=== PATIENT | male | born 1975 | race Caucasian/White ===

== ENCOUNTER 2020-11-03 11:02 | Emergency (ER) | payer OTHER, SELFPAY ==
--- NOTE | 2020-11-03 11:06 | ED.GENADULT ---
HPI - General Adult General Chief complaint: Back Pain/Injury Stated complaint: lower back pain Time Seen by Provider: 11/03/20 11:06 Source: patient Mode of arrival: ambulatory Limitations: no limitations History of Present Illness HPI narrative: 44-year-old male patient presents to the [facility] with complaints of low back pain for the past 3 days. Patient denies any specific injury that he is aware of but states [place] and pulling and unloading some stuff which thinks he might have aggravated but denies anything specific. Patient states he started having some pain later on that evening and he took some ibuprofen. Patient states the next morning when he woke up his pain was more severe especially when he went to go and stand. Patient states at times he does have some shooting pain down the right leg. Denies any numbness or tingling down the legs. Denies any loss of bowel or bladder control. Related Data Allergies Allergy/AdvReac Type Severity Reaction Status Date / Time No Known Allergies Allergy Verified 11/03/20 11:21 Review of Systems Review of Systems: Narrative: CONSTITUTIONAL: Denies fever, chills, or sweats. EYES: Denies visual changes, redness, or discharge. ENT: Denies rhinorrhea, congestion, sore throat, or otalgia. CARDIOVASCULAR: Denies chest pain, palpitations, or edema. RESPIRATORY: Denies cough or dyspnea. GASTROINTESTINAL: Denies abdominal pain, nausea, vomiting, or diarrhea. GENITOURINARY: Denies dysuria or hematuria. SKIN: Denies rash or itching. MUSCULOSKELETAL: Positive low back pain, denies joint pain, or myalgia. NEUROLOGIC: Denies headache, numbness, or weakness. PSYCHIATRIC: Denies anxiety or depression. [facility] Past Medical History Medical History (Updated 11/03/20 @ 11:39 by TERRI Albert) Inguinal hernia Comments At the time of my signature I agree with nursing past medical history, surgical, social, and family history. There is no relevant family history pertinent to the presenting complaint. Exam Narrative: Exam Narrative: GENERAL: Well-appearing, well-nourished, and in no acute distress. HEAD: Normocephalic, atraumatic. EYES: PERRLA and EOMI. ENT: Nares clear, no rhinorrhea or epistaxis. Mucous membranes moist. NECK: Supple. No lymphadenopathy CHEST: Clear to auscultation. No respiratory distress. HEART: Regular rate and rhythm. No murmur heard. Normal peripheral pulses. ABDOMEN: Soft, nontender, nondistended, normal active bowel sounds. EXTREMITIES: Normal range of motion. No edema. BACK: Patient is able to ambulated without assistance. Pt is seated on the stretcher in no obvious distress. No surface trauma noted. muscle tenderness to Palpation on the Right sided lumbar area but No spasm or mass. Patient does have some pain on palpation over the sciatic nerve on the right side no step-offs or deformity noted to the cervical, thoracic or lumbar spine to firm Palpation at the midline. No CVA tenderness to percussion. No saddle anesthesia. ROM: able to stand erect. Normal flexion, extension, Lateral bending and rotation without limitation or complaint of pain. SKIN: Warm, dry, no rash. NEURO: No focal deficits. Alert and oriented x3. Course Vital Signs Vital signs: Vital Signs Temperature 36.0 C L 11/03/20 11:13 Pulse Rate 91 11/03/20 11:13 Respiratory Rate 18 11/03/20 11:13 Blood Pressure 147/104 H 11/03/20 11:13 Pulse Oximetry 99 11/03/20 11:13 Temperature 36.0 C L 11/03/20 11:13 Pulse Rate 91 11/03/20 11:13 Respiratory Rate 18 11/03/20 11:13 Blood Pressure 147/104 H 11/03/20 11:13 Pulse Oximetry 99 11/03/20 11:13 Vital signs reviewed The patient has been informed that they may have pre-hypertension or Hypertension based on a BP reading in the department. I recommend that the patient call the primary care provider listed on their discharge instructions or a physician of their choice
[2020-11-03 11:13] VITALS: BP 147/104; PULSE 91; RESP 18; TEMP 36; O2SAT 99
== END 2020-11-03 11:45 | disposition home or self-care (01) ==
PROVIDERS: Emergency Provider Nurse Practitioner Family; PCP Family Medicine
DX: M54.41 Lumbago with sciatica, right side (principal)
CPT/HCPCS: 99203; G0463

== ENCOUNTER 2022-10-14 11:57 | Emergency (ER) | payer OTHER, SELFPAY ==
[2022-10-14 12:02] VITALS: BP 149/96; PULSE 81; RESP 20; TEMP 36.8; O2SAT 98
--- NOTE | 2022-10-14 12:24 | ED.HA ---
HPI - Headache General Chief Complaint: Headache Stated Complaint: migraine / nausea Source: patient and RN notes reviewed History of Present Illness HPI Narrative: 46 yo M presents to urgent care with complaints of a migraine since this morning. Pt reports associated nausea and vomiting this morning, photophobia, and sound sensitivity. Patient denies any neck pain, fevers, chills, diarrhea, chest pain, shortness of breath. Denies abdominal pain. Patient did take Tylenol earlier with minimal relief. Some parts of this dictation were generated by voice recognition software and may contain typographical and/or grammatical inaccuracies. Related Data Home Medications Medication Instructions Recorded Confirmed amlodipine 2.5 mg tablet 5 mg PO DAILY 10/14/22 10/14/22 aspirin 81 mg chewable tablet 81 mg PO DAILY 10/14/22 10/14/22 atorvastatin 40 mg tablet 40 mg PO DAILY 10/14/22 10/14/22 Allergies Allergy/AdvReac Type Severity Reaction Status Date / Time No Known Allergies Allergy Verified 10/14/22 12:12 Review of Systems Review of Systems: Pertinent positives and pertinent negatives per HPI. [facility] Past Medical History Medical History (Updated 10/14/22 @ 12:32 by Nora Romero, LAW ENFORCEMENT DIRECTOR) Inguinal hernia Comments At the time of my signature, I reviewed and agree with the nursing past medical, surgical, social, and family history. There is no relevant family history pertinent to the patient complaint. Exam Narrative: GENERAL: This is a well-nourished, well-developed patient, in no apparent distress. HEAD: normocephalic, atraumatic. EYES: PERRL. Sclera clear/white. Vision is grossly intact. EARS: External ears normal, auditory canals clear and without drainage, TMs normal without perforation. Hearing grossly intact. NOSE: External nose normal with no obvious nasal discharge, nares without redness, no rhinorrhea. THROAT: Mucous membranes moist, posterior pharynx clear. NECK: Neck supple, non-tender without lymphadenopathy, masses or thyromegaly. CARDIOVASCULAR: Regular rate and rhythm without murmurs, gallops, or rubs. RESPIRATORY: Clear to auscultation. Breath sounds equal bilaterally. No wheezes, rales, or rhonchi. GASTROINTESTINAL: Abdomen soft, non-tender, nondistended. Bowel sounds are active. No hepato-splenomegaly, or palpable masses. No guarding. SKIN: warm, intact with no suspicious lesions or rash, good texture and turgor. NEURO: awake, alert, and oriented to person, place and time. There were no obvious focal neurologic abnormalities. Course Course Level of Care: Express Care Visit Vital Signs Vital signs: Vital Signs Temperature 98.2 F 10/14/22 12:02 Pulse Rate 81 10/14/22 12:02 Respiratory Rate 20 10/14/22 12:02 Blood Pressure 149/96 H 10/14/22 12:02 Pulse Oximetry 98 10/14/22 12:02 Oxygen Delivery Room Air 10/14/22 12:02 Temperature 98.2 F 10/14/22 12:02 Pulse Rate 81 10/14/22 12:02 Respiratory Rate 20 10/14/22 12:02 Blood Pressure 149/96 H 10/14/22 12:02 Pulse Oximetry 98 10/14/22 12:02 Oxygen Delivery Room Air 10/14/22 12:02 Reviewed MDM - Headache MDM Narrative Medical decision making narrative: Get plenty of fluids and rest. May take ibuprofen and/or Tylenol if needed for pain. May take Zofran for nausea every 4 6 hours if needed. Follow-up with your primary care physician in 2-5 days. Go to the emergency department with any new worsening symptoms. Differential Diagnosis Differential diagnosis: Likely migraine, headache and other (Viral illness) Critical Care Time Critical Care Time Critical Care Time: No Discharge Plan Discharge Clinical Impression: Migraine Qualifiers: Migraine type: unspecified Status migrainosus presence: without status migrainosus Intractability: not intractable Qualified Code(s): G43.909 - Migraine, unspecified, not intractable, without status migrainosus Patient Disposition: Home, Self-Care Condition: Stable
[2022-10-14] MEDS: KETOROLAC 30 MG/ML VIAL (*BKC) IM (12:33)
== END 2022-10-14 12:53 | disposition home or self-care (01) ==
PROVIDERS: Emergency Provider Nurse Practitioner Family; PCP Family Medicine
DX: G43.909 Migraine, unspecified, not intractable, without status migrainosus (principal)
CPT/HCPCS: 96372; 99213; G0463; J1885

== ENCOUNTER 2023-05-11 12:11 | Emergency (ER) | payer OTHER, SELFPAY ==
--- NOTE | 2023-05-11 12:25 | ED.GENADULT ---
HPI - General Adult General Chief complaint: Unspecified Stated complaint: needs return to work note Source: patient and RN notes reviewed History of Present Illness HPI narrative: 47 yo M presents to urgent care with requests for a work note. Pt states he had to call off work this morning b/c he had diarrhea. Pt states he took some Tums and he feels much better. Pt states his place of work is wanting him to get a work note. Pt has no complaints at this time. Denies any fevers, chills, abdominal pain, chest pain, SOB, sore throat, or ear pain. Related Data Home Medications Medication Instructions Recorded Confirmed amlodipine 2.5 mg tablet 5 mg PO DAILY 10/14/22 05/11/23 aspirin 81 mg chewable tablet 81 mg PO DAILY 10/14/22 05/11/23 atorvastatin 40 mg tablet 40 mg PO DAILY 10/14/22 05/11/23 Allergies Allergy/AdvReac Type Severity Reaction Status Date / Time No Known Allergies Allergy Verified 10/14/22 12:12 Review of Systems Review of Systems: Pertinent positives and pertinent negatives per HPI. [facility] Past Medical History Medical History (Updated 05/11/23 @ 12:38 by Nora Romero, FRUIT AND VEGETABLE INSPECTOR) Inguinal hernia Comments At the time of my signature, I reviewed and agree with the nursing past medical, surgical, social, and family history. There is no relevant family history pertinent to the patient complaint. Exam Narrative: GENERAL: This is a well-nourished, well-developed patient, in no apparent distress. HEAD: normocephalic, atraumatic. EYES: Sclera clear/white. Vision is grossly intact. EARS: External ears normal, auditory canals clear and without drainage. Hearing grossly intact. NOSE: External nose normal with no obvious nasal discharge, nares without redness, no rhinorrhea. THROAT: Mucous membranes moist, posterior pharynx clear. NECK: Neck supple, non-tender without lymphadenopathy, masses or thyromegaly. CARDIOVASCULAR: Regular rate and rhythm without murmurs, gallops, or rubs. RESPIRATORY: Clear to auscultation. Breath sounds equal bilaterally. No wheezes, rales, or rhonchi. GASTROINTESTINAL: Abdomen soft, non-tender, nondistended. Bowel sounds are active. No hepato-splenomegaly, or palpable masses. No guarding. SKIN: warm, intact with no suspicious lesions or rash, good texture and turgor. NEURO: awake, alert, and oriented to person, place and time. There were no obvious focal neurologic abnormalities. EXTREMITIES: No clubbing, cyanosis, or edema. No joint tenderness, effusion, or edema noted. BACK: Nontender without deformity or crepitus. No flank tenderness. Course Course Level of Care: Express Care Visit Vital Signs Vital signs: Reviewed Medical Decision Making MDM Narrative Medical decision making narrative: pt here for a work note Differential Diagnosis Differential Diagnosis: well adult exam, viral illness, food poisoning Critical Care Time Critical Care Time Critical Care Time: No Discharge Plan Discharge Clinical Impression: Well adult exam Patient Disposition: Home, Self-Care Condition: Stable Instructions: General Patient Instructions Prescriptions: No Action atorvastatin 40 mg tablet 40 mg PO DAILY amlodipine 2.5 mg tablet 5 mg PO DAILY aspirin 81 mg tablet,chewable 81 mg PO DAILY ondansetron HCl 4 mg tablet 4 mg PO Q6H PRN (Reason: nausea and vomiting) Qty: 14 0RF Follow-up/Referrals: Harms,Saeed Jiménez M.D. [Primary Care Provider] - Stand Alone Forms: Work/School Release IP Time of Disposition: 12:37
[2023-05-11 12:30] VITALS: BP 142/96; PULSE 70; RESP 16; TEMP 37.3; O2SAT 99
== END 2023-05-11 12:42 | disposition home or self-care (01) ==
PROVIDERS: Emergency Provider Nurse Practitioner Family; PCP Family Medicine
DX: Z02.79 Encounter for issue of other medical certificate (principal); Z79.82 Long term (current) use of aspirin
CPT/HCPCS: 99211; G0463

== ENCOUNTER 2023-06-19 13:41 | Emergency (ER) | payer OTHER, SELFPAY ==
[2023-06-19 14:02] VITALS: BP 142/84; PULSE 84; RESP 16; TEMP 36.7; O2SAT 97
--- NOTE | 2023-06-19 14:20 | ED.NAVMDI ---
HPI - Nausea/Vomiting/Diarrhea General Chief complaint: Nausea/Vomiting/Diarrhea Stated complaint: Diarrhea/Vomiting Time Seen by Provider: 06/19/23 14:21 Source: patient Mode of arrival: ambulatory Limitations: no limitations History of Present Illness HPI Narrative: 47-year-old male presents with complaint of nausea vomiting and diarrhea starting after eating [employer] yesterday. Last vomited at approximately 8:00 a.m.. No longer having any nausea or diarrhea. Patient needs work note to return. Thinks symptoms related to eating [employer]. Afebrile. Denies body aches and chills. Well-appearing and smiling. All systems reviewed and negative except as noted above. Related Data Home Medications Medication Instructions Recorded Confirmed amlodipine 2.5 mg tablet 5 mg PO DAILY 10/14/22 06/19/23 aspirin 81 mg chewable tablet 81 mg PO DAILY 10/14/22 06/19/23 atorvastatin 40 mg tablet 40 mg PO DAILY 10/14/22 06/19/23 Allergies Allergy/AdvReac Type Severity Reaction Status Date / Time No Known Allergies Allergy Verified 10/14/22 12:12 Review of Systems Review of Systems: CONSTITUTIONAL: Denies fever, chills, or sweats. EYES: Denies visual changes, redness, or discharge. ENT: Denies rhinorrhea, congestion, sore throat, or otalgia. CARDIOVASCULAR: Denies chest pain, palpitations, or edema. RESPIRATORY: Denies cough or dyspnea. GASTROINTESTINAL: Denies abdominal pain. Reports nausea, vomiting, and diarrhea that has resolved. GENITOURINARY: Denies dysuria or hematuria. SKIN: Denies rash or itching. MUSCULOSKELETAL: Denies back pain, joint pain, or myalgia. NEUROLOGIC: Denies headache, numbness, or weakness. PSYCHIATRIC: Denies anxiety or depression. All other systems reviewed are negative, except as documented in HPI. [facility] Past Medical History Medical History (Updated 06/19/23 @ 14:24 by Ritu Angel NP) Inguinal hernia Comments At time of signature, agree with nursing past medical, surgical, social and family history. There is no relevant family history pertinent to the presenting complaint. Exam Narrative: GENERAL: This is a well-nourished, well-developed patient, in no apparent distress. HEAD: normocephalic, atraumatic. EYES: PERRL. Sclera clear/white. Vision is grossly intact. EARS: External ears normal NOSE: External nose normal NECK: Neck supple, non-tender without lymphadenopathy, masses or thyromegaly. CARDIOVASCULAR: Regular rate and rhythm without murmurs, gallops, or rubs. RESPIRATORY: Clear to auscultation. Breath sounds equal bilaterally. No wheezes, rales, or rhonchi. GASTROINTESTINAL: Abdomen soft, non-tender, nondistended. Bowel sounds are active. No hepato-splenomegaly, or palpable masses. No guarding. SKIN: warm, Dry, intact with no suspicious lesions or rash, good texture and turgor. NEURO: awake, alert, and oriented to person, place and time. There were no obvious focal neurologic abnormalities. EXTREMITIES: No joint tenderness, effusion, or edema noted. Course Course Level of Care: Express Care Visit Vital Signs Vital signs: Vital Signs Temperature 36.7 C 06/19/23 14:02 Pulse Rate 84 06/19/23 14:02 Respiratory Rate 16 06/19/23 14:02 Blood Pressure 142/84 H 06/19/23 14:02 Pulse Oximetry 97 06/19/23 14:02 Oxygen Delivery Room Air 06/19/23 14:02 Temperature 36.7 C 06/19/23 14:02 Pulse Rate 84 06/19/23 14:02 Respiratory Rate 16 06/19/23 14:02 Blood Pressure 142/84 H 06/19/23 14:02 Pulse Oximetry 97 06/19/23 14:02 Oxygen Delivery Room Air 06/19/23 14:02 Reviewed MDM - Nausea/Vomiting/Diarrhea MDM Narrative Medical decision making narrative: Patient well-appearing. Symptoms have resolved. No abdominal tenderness on exam. Here for work note. Patient is aware of diagnosis, understands and agrees to treatment plan. Anticipatory guidance given. Patient agrees to follow-up as directed and is aware of reasons to se
== END 2023-06-19 14:32 | disposition home or self-care (01) ==
PROVIDERS: Emergency Provider Nurse Practitioner Family; PCP Family Medicine
DX: R11.2 Nausea with vomiting, unspecified (principal); R19.7 Diarrhea, unspecified; Z79.82 Long term (current) use of aspirin; Z79.899 Other long term (current) drug therapy
CPT/HCPCS: 99211; G0463

== ENCOUNTER 2024-10-08 19:23 | Emergency (ER) | payer OTHER, SELFPAY ==
--- OUTSIDE RECORDS SUMMARY | 2024-10-08 19:26 | XMS_ITS | Clinical Summary ---
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 Name Role Phone Saeed Alicea MD Primary Care Provider [phone] Allergies No known active allergies Medications aspirin 81 mg chewable tablet Take 1 tablet (81 mg total) by mouth daily 30 tablet 11 02/06/20 22 Active atorvastatin (LIPITOR) 40 mg tablet Take 1 tablet (40 mg total) by mouth daily 30 tablet 11 03/09/20 23 Active benzonatate (TESSALON) 100 mg capsuleIndications :Cough Take 1 capsule (100 mg total) by mouth 3 (three) times a day as needed for cough 42 capsule 07/11/20 23 Active Additional Information Patient not taking.Reported on 08/08/2024 ondansetron ODT (ZOFRAN-ODT) 4 mg disintegrating tablet Take 1 tablet (4 mg total) by mouth every 8 (eight) hours as needed for nausea or vomiting 20 tablet 07/11/[address] (PROTONIX) 40 mg EC tablet Take 1 tablet by mouth twice daily 180 tablet 09/15/19 24 Active amLODIPine (NORVASC) 2.5 mg tablet Take 2 tablets by mouth once daily 60 tablet 04/03/20 24 Active Active Problems Problem Noted Date Diagnosed Date Class 3 severe obesity due t o excess calories without serious comorbidity with body mass index (BMI) of 40.0 to 44.9 in adult 08/08/2024 Assessment & Plan (08/08/2024 11:09 AM CENTRIFUGAL DRIER OPERATOR): Encouraged heart healthy diet and lifestyle. Advised 150 min/week of aerobic exercise. Family history of hemochromatosis 08/08/2024 Assessment & Plan (08/08/2024 11:10 AM CENTRIFUGAL DRIER OPERATOR): Will check iron profile, Ferritin, and Hemochromatosis gene. Choking sensation 07/11/2023 Dyspepsia 07/11/2023 Heartburn 07/11/2023 Migraine 05/31/2023 Encounter for screening colonoscopy 04/19/2023 Elevated glucose 11/21/2018 Chest pain 05/12/2016 Overview (11/04/2016): Chest pain, unspecified type Assessment & Plan (11/21/2018 2:09 PM CDT): Patient recently in the emergency room on November 16 for chest pain. Cardiac enzymes were negative, chest x-ray was negative, EKG was normal. D-dimer was negative. Will have patient do a stress test. Will check patient's thyroid labs. Will check A1c. And carotid ultrasound Essential hypertension 05/12/2016 Overview (11/04/2016): Essential hypertension Assessment & Plan (08/08/2024 11:08 AM CENTRIFUGAL DRIER OPERATOR): Blood pressure slightly increased. Admits to not taking medication as prescription. Amlodipine will continue. Assessment & Plan (11/21/2018 11:56 AM CDT): Hypertension is improving with treatment. Weight loss. Blood pressure will be reassessed in 4 weeks. Lifestyle changes can help you control and prevent high blood pressure, even if you're taking blood pressure medication. Here's what you can do: Eat healthy foods. Eat a healthy diet. Try the Dietary Approaches to Stop Hypertension (DASH) diet, which emphasizes fruits, vegetables, whole grains, poultry, fish and low-fat dairy foods. Get plenty of potassium, which can help prevent and control high blood pressure. Eat less saturated fat and trans fat. Decrease the salt in your diet. A lower sodium level -- 1,500 milligrams (mg) a day -- is appropriate for people 51 years of age or older, and individuals of any age who are black or who have hypertension, diabetes or chronic kidney disease. Maintain a healthy weight. Keeping a healthy weight, or losing weight if you're overweight or obese, can help you control your high blood pressure and lower your risk of related health problems. If you're overweight, losing even 5 pounds (2.3 kilograms) can lower your blood pressure. Increase physical activity. Regular physical activity can help lower your blood pressure, manage stress, reduce your risk of several health problems and keep your weight under control. Limit alcohol. Even if you're healthy, alcohol can raise your blood pressure. If you choose to drink alcohol, do so in moderation. For healthy adults, that means up to one drink a day for women of all ages and men older than age 65, and up to two drinks a day for men age 65 and younger. One drink equals 12 ounces of beer, 5 ounces of wine or 1.5 ounces of 80-proof liquor. Don't smoke. Tobacco injures blood vessel loyd and speeds up the process of hardening of the arteries. If you smoke, ask your doctor to help you quit. Manage stress. Reduce stress as much as possible. Practice healthy coping techniques, such as muscle relaxation, deep breathing or meditation. Getting regular physical activity and plenty of sleep can help, too. Notify the office for blood pressure greater than 130/80 Chest pain on exertion 05/12/2016 Overview (11/04/2016): Chest pain on exertion Hyperlipidemia, familial, high LDL Assessment & Plan (08/08/2024 11:08 AM CENTRIFUGAL DRIER OPERATOR): Lipid panel ordered. Will continue atorvastatin. Will continue to monitor. Resolved Problems Problem Noted Date Diagnosed Date Resolved Date Severe obesity 08/08/2024 08/08/2024 Chest pain, unspecified type 02/03/2022 08/08/2024 Obesity, Class II, BMI 35-39 .9, isolated (see actual BMI) 11/21/2018 08/08/2024 Assessment & Plan (11/21/2018 11:43 AM CDT): Obesity is worsening. Discussed the patient's BMI. The BMI is above average; BMI management plan is completed. General weight loss/lifestyle modification strategies discussed (elicit support from others; identify saboteurs; non-food rewards, etc). Diet= low-carb Limit white bread, rice, pasta, potatoes, juice, energy drinks, coffee creamers with sugar, sugar sodas, candy, cake, cookies, ice cream. Be more careful with starchy vegetables like corn, carrots, and fruits. Stay away from processed foods, fast foods, fried foods. The cornerstone of this diet is lean grilled meats, green salads or cooked greens, fat-free milk, cottage cheese, nuts like jaadzvx-meubsqn-kudmhtc, protein bars with 10-15 g of protein and 20-30 g of carbohydrate. Choose whole grain breads and pastas, brown rice, sweet potatoes, read onions--these whole grains absorb more slowly thus blood sugar does not surge so high so quickly. Avoid drinking juice, eat a piece of fruit instead. Encounters Date Type Department Care Team Description 08/16/2024 [facility]phone [facility] [address] [address] Saeed Alicea MD 08/08/2024 11:30 AM CENTRIFUGAL DRIER OPERATOR Lab [facility] [address] [place] [address] Family history of hemochromatosis; Hyperlipidemia, familial, high LDL; Essential hypertension 08/08/2024 11:00 AM CENTRIFUGAL DRIER OPERATOR [facility] Visit [facility] [address] [address] Pily Tipton NP Family history of hemochromatosis (Primary Dx); Essential hypertension; Hyperlipidemia, familial, high LDL; Class 3 severe obesity due to excess calories without serious comorbidity with body mass index (BMI) of 40.0 to 44.9 in adult (HCC) from Last 3 Months Immunizations Immunization Administration Dates Next Due Influenza, Quadrivalent, Spl it, Preservative Free, Intramuscular 05/04/2021 Influenza, Unspecified 08/08/2024(Deferr ed: Patient Refused),08/08/2024(Deferred: Patient Refused),03/31/2024(Deferred: Patient Refused),03/31/2024(Deferred: Patient Refused),03/31/2023(Deferred: Patient Refused),03/09/2023(Deferred: Patient Refused),07/20/2022(Deferred: Patient Refused),03/31/2022(Deferred: Patient Refused),07/31/2020(Deferred: Patient Refused),03/31/2020(Deferred: Patient Refused),10/04/2019(Deferred: Patient Refused),07/31/2018(Deferred: Patient Refused),09/28/2017(Deferred: Patient Refused),08/01/2016(Deferred: Patient Refused) Surgical History Surgery Date Site/Laterality Comments OTHER SURGICAL HISTORY chest pain: no angioplasty OTHER SURGICAL HISTORY chest pain: no pacemaker OTHER SURGICAL HISTORY chest pain: no bypass surgery COLONOSCOPY 06/19/2024 Medical History Medical History Date Comments Hx Other Medical nasal Fx Hx Other Medical chest pain Seizure disorder (HCC) 1995 Seizure d isorder; Comments: EUGENE 05/12/2016 -1 seizure 1995, no others Hypertension Hyperlipemia Family History Medical History Relation Name Comments Hyperlipidemia Father Hyperlipidemi a; Hypertension Father Hypertension; Other Father Alive and well; Coronary artery disease Mother Edgar nary artery disease; Diabetes Mother Diabetes mellit us; Other Mother Alive and well; Breast cancer Sister Cancer, breast ; Relation Name Status Comments Father Alive Mother Alive Sister Social History Tobacco Use Types Packs/Day Years Used Date Smoking Tobacco: Never Smokeless Tobacco: Never Tobacco Cessation:Counseling Given: Not Answered Alcohol Use Standard Drinks/Week Comments Yes 0 (1 standard drink = 0.6 oz pur e alcohol) 1-2 times a week/ 6 beers PHQ-2 Answer Date Recorded PHQ-2 Total Score (If total score is 3 or more points, staff should administer the PHQ-9) 0 08/08/2024 Personal Safety Answer Date Recorded Have you ever been in or are you currently in a harmful physical or emotional relationship or is someone making you feel afraid or unsafe? Denies 06/19/2024 Sex and Gender Information Value Date Recorded Sex Assigned at Not on file Legal Sex Male 12:30 AM CENTRIFUGAL DRIER OPERATOR Gender Identity Not on file Sexual Orientation Not on file Obstetrics History Last Filed Vital Signs Vital Sign Reading Time Taken Comments Blood Pressure 126/94 08/08/2024 10:56 AM CENTRIFUGAL DRIER OPERATOR pt reports not taking meds like he should Pulse 61 08/08/2024 10:56 AM CENTRIFUGAL DRIER OPERATOR Temperature 36.8 C (98.2 F) 06/19/2024 1:25 PM CENTRIFUGAL DRIER OPERATOR Respiratory Rate 18 08/08/2024 10:5 6 AM CENTRIFUGAL DRIER OPERATOR Oxygen Saturation 98% 08/08/2024 10: 56 AM CENTRIFUGAL DRIER OPERATOR Inhaled Oxygen Concentration - - Weight 115.8 kg (255 lb 6.4 oz) 08/08/2024 10:56 AM CENTRIFUGAL DRIER OPERATOR Height 167.6 cm (5' 5.98 ) 08/08/2024 1 0:56 AM CENTRIFUGAL DRIER OPERATOR Body Mass Index 41.24 08/08/2024 10:56 AM CENTRIFUGAL DRIER OPERATOR Plan of Treatment Health Maintenance Due Date Last Done Comments Hepatitis C Screening 1977 DTaP/Tdap/Td Vaccine (1 - Tdap) 1988 Hepatitis B Screening 12/26/1995 Regular Well Visit/Exam 18-64 12/26/1995 Covid-19 Vaccine ( season) 2024 11/16/2020, 10/26/2020 Influenza Vaccine (#1) 2024 05/04/2021 Depression Screening 08/08/2025 08/08/2024, 03/09/2023, 07/20/2022, Additional history exists Colon Cancer Screening-Colonoscopy 06/19/2034 06/19/2024 HPV Vaccines Aged Out No longer eligi ble based on patient's age to complete this topic Pneumococcal vaccine <65 Aged Out No longer eligible based on patient's age to complete this topic Procedures Procedure Name Priority Date/Time Associated Diagnosis Comments EGFR Routine 08/08/2024 11:53 AM CENTRIFUGAL DRIER OPERATOR Family history of hemochromatosis DIFFERENTIAL AUTO Routine 08/08/2024 11: 53 AM CENTRIFUGAL DRIER OPERATOR Family history of hemochromatosis Essential hypertension CBC WITH AUTO DIFFERENTIAL Routine 08/08/2024 11:53 AM CENTRIFUGAL DRIER OPERATOR Family history of hemochromatosis Essential hypertension COMPREHENSIVE METABOLIC PANEL Routine 08/08/2024 11:53 AM CENTRIFUGAL DRIER OPERATOR Family history of hemochromatosis LIPID PANEL Routine 08/08/2024 11:53 AM CENTRIFUGAL DRIER OPERATOR Hyperlipidemia, familial, high LDL IRON PROFILE W/ IBC Routine 08/08/2024 1 1:53 AM CENTRIFUGAL DRIER OPERATOR Family history of hemochromatosis FERRITIN Routine 08/08/2024 11:53 AM CENTRIFUGAL DRIER OPERATOR Family history of hemochromatosis HEMOCHROMATOSIS HFE GENE ANALYSIS Routine 08/08/2024 11:53 AM CENTRIFUGAL DRIER OPERATOR Family history of hemochromatosis COLONOSCOPY 06/19/2024 10:29 AM CENTRIFUGAL DRIER OPERATOR from Last 3 Months or Most Recently Relevant to Health Maintenance Results * eGFR (08/08/2024 11:53 AM CENTRIFUGAL DRIER OPERATOR) eGFR >90 >=60 mL/min/1. 73 m2 Comment: Interpretive Data Reference Interval Normal >/= 90 mL/min/1.73m2 Mildly decreased* 60 - 89 mL/min/1.73m2 Mildly to moderately decreased 45 - 59 mL/min/1.73m2 Moderately to severely decreased 30 - 44 mL/min/1.73m2 Severely decreased 15 - 29 mL/min/1.73m2 Kidney Failure < 15 mL/min/1.73m2 *Relative to young adult level Estimated glomerular filtration rate is determined by the 2020 CKD-EPI equation recommended by the National Kidney Foundation (A Unifying Approach to GFR Estimation: Recommendations of the NKF-ASK Task Force on Reassessing the Inclusion of Race in Diagnosing Kidney Disease, JASN 2020). The CKD-EPI equation should not be used for patients with unstable renal function and has not been validated in children and those over 70. Current interpretive data was last reviewed 2021. Testing performed by: [facility], [id number] [place] [address], [place]., [address] Blood 08/08/2024 11:5 3 AM CENTRIFUGAL DRIER OPERATOR 08/08/2024 10:41 PM CENTRIFUGAL DRIER OPERATOR us Pily Tipton WIND ENERGY PROJECT MANAGER LAB BLOOD ORDERABLES Final Re sult [facility] ([facility]) [address] [facility] Department [place] [address] * Differential, auto (08/08/2024 11:53 AM CENTRIFUGAL DRIER OPERATOR) Neutrophil abs 4.4 1.5 - 6.5 K/cumm Comment:Testing performed by : [facility], [address] [place] [address]., [address] Imm gran abs 0.0 0.0 - 0.1 K/cumm [facility] ([facility]) Comment:Testing performed by : [facility], [address] [place] [address]., [address] Lymphocyte abs 1.8 0.8 - 3.3 K/cumm [facility] ([facility]) Comment:Testing performed by : [facility], [address] [place] [address]., [address] Monocyte abs 0.5 0.2 - 0.8 K/cumm [facility] ([facility]) Comment:Testing performed by : [address] [address] Eosinophil abs 0.1 0.0 - 0.5 K/cumm [facility] ([facility]) Comment:Testing performed by : [facility], [address] [place] [address]., [address] Basophil abs 0.1 0.0 - 0.1 K/cumm [facility] ([facility]) Comment:Testing performed by : [address] [address] Neutrophil pct 65.1 % [facility] ([facility]) Comment: Interpretive Data Percent cell count reference ranges are not reported, since discordance with absolute values may lead to misinterpretation of CBC data. Current Interpretive Data was last revised on 2017. Testing performed by: [facility], [address] [place] [address]., [address] Imm gran pct 0.4 % [facility] ([facility]) Comment: Interpretive Data Percent cell count reference ranges are not reported, since discordance with absolute values may lead to misinterpretation of CBC data. Current Interpretive Data was last revised on 2017. Testing performed by: [address] [address] Lymphocyte pct 26.0 % [facility] ([facility]) Comment: Interpretive Data Percent cell count reference ranges are not reported, since discordance with absolute values may lead to misinterpretation of CBC data. Current Interpretive Data was last revised on 2017. Testing performed by: [address] [address] Monocyte pct 6.9 % [facility] (JLUIS) Comment: Interpretive Data Percent cell count reference ranges are not reported, since discordance with absolute values may lead to misinterpretation of CBC data. Current Interpretive Data was last revised on 2017. Testing performed by: [facility], [address] [place] [address]., [address] Eosinophil pct 0.9 % [facility] ([facility]) Comment: Interpretive Data Percent cell count reference ranges are not reported, since discordance with absolute values may lead to misinterpretation of CBC data. Current Interpretive Data was last revised on 2017. Testing performed by: [address], [address] Basophil pct 0.7 % [facility] (JLUIS) Comment: Interpretive Data Percent cell count reference ranges are not reported, since discordance with absolute values may lead to misinterpretation of CBC data. Current Interpretive Data was last revised on 2017. Testing performed by: [address], [address] Blood 08/08/2024 11:5 3 AM CENTRIFUGAL DRIER OPERATOR 08/08/2024 10:36 PM CENTRIFUGAL DRIER OPERATOR Pily Tipton NP LAB BLOOD ORDERABLES Final Re sult [facility] ([facility]) [address] [facility] Department [place] [address] * Iron profile w/ IBC (08/08/2024 11:53 AM CENTRIFUGAL DRIER OPERATOR) Iron 112 50 - 150 mcg/dl Comment:Testing performed by : [address], [address] TIBC 316 250 - 400 mcg/dL [facility] ([facility]) Comment:Testing performed by : [address], [address] Transferrin saturation 35 20 - 50 % [facility] ([facility]) Comment:Testing performed by : [address], [address] Blood 08/08/2024 11:5 3 AM CENTRIFUGAL DRIER OPERATOR 08/08/2024 10:36 PM CENTRIFUGAL DRIER OPERATOR Pily Tipton WIND ENERGY PROJECT MANAGER LAB BLOOD ORDERABLES Final Re sult [facility] ([facility]) [address] [facility] Department [place] [address] * (ABNORMAL) CBC with auto differential (08/08/2024 11:53 AM CENTRIFUGAL DRIER OPERATOR) WBC 6.8 3.8 - 9.9 K/cumm Comment:Testing performed by : [address], [address] Hgb 15.7 13.0 - 17.5 g/dL [facility] ([facility]) Comment:Testing performed by : [address], [address] Hct 47.5 38.9 - 50.3 % [facility] ([facility]) Comment:Testing performed by : [address], [address] Plt 269 150 - 400 K/cumm [facility] ([facility]) Comment:Testing performed by : [address], [address] MPV 10.8 9.1 - 12.3 fL [facility] ([facility]) Comment:Testing performed by : [address], [address] RBC 4.70 4.30 - 5.80 M/cumm [facility] ([facility]) Comment:Testing performed by : [address], [address] MCV 101.1(H) 81.3 - 96.4 fL [facility] ([facility]) Comment:Testing performed by : [address], [address] MCH 33.4(H) 27.1 - 33.3 pg [facility] ([facility]) Comment:Testing performed by : [facility], [address] [place] [address], [address] MCHC 33.1 32.3 - 35.7 g/dL [facility] ([facility]) Comment:Testing performed by : [facility], [address] [place] [address], [address] RDW CV 13.7 11.1 - 14.9 % [facility]ALL[facility] (JLUIS) Comment:Testing performed by : [facility], [address] [place] [address], [address] RDW SD 50.6(H) 35.7 - 48.1 fL [facility] ([facility]) Comment:Testing performed by : [facility], [address] [place] [address], [address] NRBC abs 0.00 0.00 - 0.01 K/cumm [facility] ([facility]) Comment:Testing performed by : [facility], [address] [place] [address], [address] Blood 08/08/2024 11:5 3 AM CENTRIFUGAL DRIER OPERATOR 08/08/2024 10:36 PM CENTRIFUGAL DRIER OPERATOR us Pily Tipton NP LAB BLOOD ORDERABLES Final Re sult [facility] ([place]) [address] [facility] Department [place] [address] * Hemochromatosis HFE Gene Analysis (08/08/2024 11:53 AM CENTRIFUGAL DRIER OPERATOR) HFE Genotype Negative [facility] Comment:Testing performed by : [facility], [address] [facility]., [address] HFE p.C282Y Negative [facility] (JLUIS) Comment:Testing performed by : [facility], [address] [facility] [place]., [address] HFE p.H63D Negative [facility] ([facility]) Comment:Testing performed by : [facility], [address] [facility] [place]., [address] HFE Interpretation This genotype suggests low risk of hereditary hemochromatosis (HH) but does not rule out diagnosis or risk for HH. Approximately 6% of Caucasians with HH in [place] have this genotype. The frequency in other ethnicities may vary. Correlation of clinical findings and family history with genotype results is recommended for establishing a diagnosis of HH. HH is an autosomal recessive disorder of iron metabolism that results in iron overload and potential organ failure. It is one of the most common genetic disorders in individuals of - ancestry, with an estimated carrier frequency of 10%. HH is associated with variants in the HFE gene. Most individuals with HH (60-90%) are homozygous for the p.C282Y variant. A smaller percentage of affected individuals are either compound heterozygous for the p.C282Y and p.H63D variants (3%-8%), or homozygous for the p.H63D variant (2%). Genetic counseling is recommended for discussion of the clinical implications of this result. [facility]NE MEJÍA) Comment:Testing performed by : [facility], [address] [place]., [address] HFE Specimen Whole Blood [facility]ALL[facility] (JLUIS) Comment:Testing performed by : [facility], [address] [place]., [address] HFE Result Review Final report reviewed by: Tracie Banks, Quartz Cutter, on 08/16/2024 11:41:11 CENTRIFUGAL DRIER OPERATOR. [facility] ME[facility]ÍA) Comment: Interpretive Data Method: This assay detects the two variants in the HFE gene, p.C282Y (NM_000410.2: c.845G>A) and p.H63D ([id number]: c.187C>G), that are commonly associated with HH. The variants are detected by a multiplex PCR based assay performed on the [employer] 7500 Fast Dx Real-Time PCR instrument. Limitations: Bone Marrow transplants from allogenic donors may interfere with interpretation of test results. Alternative specimen types including cultured fibroblasts may be necessary for accurate testing results. This assay does not rule out the presence of other disease-causing mutations in the HFE gene or in other genes associated with HH. Since genetic variation and additional factors can affect the accuracy of genotyping, these results should be interpreted in the context of clinical findings, family history, and other laboratory testing (e.g. serum transferrin-iron saturation and serum ferritin). This test was developed and its performance characteristics determined by the [facility] at [facility] in a manner consistent with CLIA requirements. This test has not been cleared or approved by the U.S. Food and Drug Administration. References: Everardo RODAS, Matt SALGUERO, Peter CC, et al. Rapg-elykohfb-aeohiad disease in HFE hereditary hemochromatosis. N Engl J Med. 2008;358:221 3 0. Buzz BR, Shan PC, Gabriele KV, et al. Diagnosis and management of hemochromatosis: 2011 practice guideline by the [place] Association for the Study of Liver Diseases. Hepatology. 2011;54:328 4 3. Sánchez NUBIA, Rivera CQ, Na RT. HFE gene: structure, function, mutations, and associated iron abnormalities. Gene. 2015;574:179 9 2. Fabrice CastleJ, Shay HERCULES, Abbey LB, et al. Clinical and biochemical abnormalities in people heterozygous for hemochromatosis. N Engl J Med. 1996;335:1799 8 05. Latisha PA, Narciso LW, Navin DJ, [place] D, Marifer E, Elaine LauK. A population- based study of the biochemical and clinical expression of the H63D hemochromatosis mutation. Gastroenterology. 2002;122:646 5 1. Matt SALGUERO, Yuly NA, Naveen COLLINS, et al. HFE C282Y/H63D compound heterozygotes are at low risk of hemochromatosis-related morbidity. Hepatology. 2009;50:94 1 01. Lucius CORNELIUS, Daniele G, Dutch W. HFE gene and hereditary hemochromatosis: a HuGE review. Human Genome Epidemiology. Am J Epidemiol. 2001 Feb 28; 154(3):193-206. Fransisco A, Danielo C, Krysta L, et al. Two novel nonsense mutations of HFE gene in five unrelated [place] patients with hemochromatosis. Gastroenterology. 2000;119:441 5 . Heather EP, Jessa BA, Evens EL, et al. Screening for hereditary hemochromatosis: a systematic review for the U.S. Preventive Services Task Force. Tawanna Work Car Operator Med. 2006;145:209 2 3. This test was performed at: [facility], [address] [facility], CLIA#[id number], Tawanna Boateng, Ph.D., [place], [address], [place] Current interpretive data was last revised 2021. Testing performed by: [facility], [address] [facility], [place]., [address] Blood 08/08/2024 11:5 3 AM CENTRIFUGAL DRIER OPERATOR 08/09/2024 10:47 AM CENTRIFUGAL DRIER OPERATOR Pily Tipton NP LAB GENETIC TESTING Final Res ult Performing Organization Address City/[facility]/ZIP Co de Phone Number [facility] ([place]) [address] [place] [address] of [employer] [place] [address] [facility] * Ferritin (08/08/2024 11:53 AM CENTRIFUGAL DRIER OPERATOR) Ferritin 258 30 - 400 ng/mL Comment:Testing performed by : [facility] [place], [address] [place] [address]., [id number] Blood 08/08/2024 11:5 3 AM CENTRIFUGAL DRIER OPERATOR 08/08/2024 10:36 PM CENTRIFUGAL DRIER OPERATOR Pily Tipton NP LAB BLOOD ORDERABLES Final Re sult [facility] ([place]) [address] [place] [address] [place] [place] [address] * (ABNORMAL) Lipid panel (08/08/2024 11:53 AM CENTRIFUGAL DRIER OPERATOR) Cholesterol 271(H) 30 - 199 mg/dL Comment: Interpretive Data Ages < or = 19 years Acceptable: <170 mg/dL Borderline high: 170-199 mg/dL High: >or= 200 mg/dL Ages > or = 20 years Desirable: <200 mg/dL Borderline high: 200-239 mg/dL High: >or= 240 mg/dL Literature References: 1. Expert Panel on Integrated Guidelines for Cardiovascular Health and Risk Reduction in Children and Adolescents. Pediatrics 2011;128:S213 2. NCEP Expert Panel. Circulation 2004;110:227 Current Interpretive Data was last revised on 2018. Testing performed by: [facility] [place], [address] [place] [address]., [id number] Triglycerides 226(H) <=149 mg/dL [facility] ([place]) Comment: Interpretive Data Ages < or = 9 years Acceptable: <75 mg/dL Borderline high: 75-99 mg/dL High: >or= 100 mg/dL Ages 10 to 20 years Acceptable: <90 mg/dL Borderline high: 90-129 mg/dL High: >or= 130 mg/dL Ages > or = 20 years Desirable: <150 mg/dL Borderline high: 150-199 mg/dL High: 200-499 mg/dL Very high: >or= 499 mg/dL Literature References: 1. Expert Panel on Integrated Guidelines for Cardiovascular Health and Risk Reduction in Children and Adolescents. Pediatrics 2011;128:S213 2. NCEP Expert Panel. Circulation 2004;110:227 Current Interpretive Data was last revised on 2018. Testing performed by: [facility] [place], [address] [place] [address]., [address] HDL 43 >=40 mg/dL [facility] ([place]) Comment: Interpretive Data Ages < or = 19 years Acceptable: >45 mg/dL Borderline low: 40-45 mg/dL Low: <40 mg/dL Ages > or = 20 years Desirable: >or= 60 mg/dL Low: <40 mg/dL Literature References: 1. Expert Panel on Integrated Guidelines for Cardiovascular Health and Risk Reduction in Children and Adolescents. Pediatrics 2011;128:S213 2. NCEP Expert Panel. Circulation 2004;110:227 Current Interpretive Data was last revised on 2018. Testing performed by: [facility], [address] [place] [address]., [address] LDL, calculated 185(H) <=129 mg/dL [facility] ([place]) Comment: Interpretive Data Ages < or = 19 years Acceptable: <110 mg/dL Borderline high: 110-129 mg/dL High: >or= 130 mg/dL Ages > or = 20 years Optimal: <100 mg/dL Near optimal: 100-129 mg/dL Borderline high: 130-159 mg/dL High: >160 mg/dL Calculated using the Martinez LDL-C estimating equation. This equation was implemented on 2024. Prior to this date LDL-C was estimated using the Friedewald equation. Literature References: 1. Expert Panel on Integrated Guidelines for Cardiovascular Health and Risk Reduction in Children and Adolescents. Pediatrics 2011;128:S213 2. NCEP Expert Panel. Circulation 2004;110:227 3. Juan Renee et al. AKILAH Cardiol. 2020 November 28;5(5):540-548. doi: 10.1001/jamacardio.2020.0013 Current Interpretive Data was last revised on 2024. Testing performed by: [address] [address] Non-HDL Cholesterol 228 mg/dL [facility] ([place]) Comment: Interpretive Data Ages < or = 19 years Acceptable: <120 mg/dL Borderline high: 120-144 mg/dL High: >145 mg/dL Ages > or = 20 years When triglycerides are >200 mg/dL, Non-HDL cholesterol is a secondary target of therapy with treatment goals that are 30 mg/dL greater than the LDL cholesterol target. Literature References: 1. Expert Panel on Integrated Guidelines for Cardiovascular Health and Risk Reduction in Children and Adolescents. Pediatrics 2011;128:S213 2. NCEP Expert Panel. Circulation 2004;110:227 Current Interpretive Data was last revised on 2018. Testing performed by: [address] [address] Chol/HDL ratio 6 [facility] ([place]) Comment:Testing performed by : [address] [address] Blood 08/08/2024 11:5 3 AM CENTRIFUGAL DRIER OPERATOR 08/08/2024 10:36 PM CENTRIFUGAL DRIER OPERATOR us Pily Tipton NP LAB BLOOD ORDERABLES Final Re sult [facility] ([place]) [facility] Department of Laboratories [place], [place] [id number] * (ABNORMAL) Comprehensive metabolic panel (08/08/2024 11:53 AM CENTRIFUGAL DRIER OPERATOR) [employer] Signature Sodium 136 135 - 145 mmol/L Comment:Testing performed by : [address] [place]., [address] Potassium, pl 4.8 3.3 - 4.9 mmol/L [facility] ([place]) Comment:Testing performed by : [facility] [place], [address] [place] [address]., [id number] Chloride 98 97 - 110 mmol/L [facility] ([place]) Comment:Testing performed by : [address] [address] CO2 19(L) 22 - 32 mmol/L [facility] ([place]) Comment:Testing performed by : [facility], [address] [place] [address], [id number] Anion gap 19(H) 2 - 15 mmol/L [facility] ([place]) Comment:Testing performed by : [address], [address] BUN 11 6 - 25 mg/dL [facility] ([place]) Comment:Testing performed by : [address], [address] Creatinine 0.97 0.80 - 1.30 mg/dL [facility] ([place]) Comment:Testing performed by : [address], [address] Glucose 96 70 - 199 mg/dL [facility] ([place]) Comment: Interpretive Data Fasting glucose >/= 126 mg/dl is diagnostic for diabetes. Fasting is defined as no caloric intake for at least 8 hours. Fasting glucose between 100 mg/dl to 125 mg/dl is diagnostic of prediabetes. In a patient with classic symptoms of hyperglycemia or hyperglycemic crisis, a random glucose >/= 200 mg/dl is diagnostic for diabetes. In the absence of unequivocal hyperglycemia, results should be confirmed by repeat testing. The classification and Diagnosis of Diabetes Diabetes Care 202; 46: S19-S40. Current interpretive data was last revised 2022. Testing performed by: [address] [address] Calcium 9.7 8.5 - 10.3 mg/dL [facility] ([place]) Comment:Testing performed by : [address], [address] Bilirubin, total 0.6 0.1 - 1.2 mg/dL [facility] ([place]) Comment:Testing performed by : [facility], [address] [place] [address]., [address] Protein, pl 7.5 6.5 - 8.5 g/dL [facility] ([place]) Comment:Testing performed by : [facility], [address] [place] [address], [address] Albumin 4.7 3.5 - 5.0 g/dL [facility] ([place]) Comment:Testing performed by : [facility], [address] [place] [address], [address] Alk phos 60 40 - 130 Units/L [facility] ([place]) Comment:Testing performed by : [facility], [address] [place] [address], [id number] ALT 62(H) 7 - 55 Units/L [facility] ([place]) Comment:Testing performed by : [facility], [address] [place] [address], [address] AST 53(H) 10 - 50 Units/L [facility] ([place]) Comment:Testing performed by : [facility], [address] [place] [address], [id number] Blood 08/08/2024 11:5 3 AM CENTRIFUGAL DRIER OPERATOR 08/08/2024 10:36 PM CENTRIFUGAL DRIER OPERATOR Pily Tipton NP LAB BLOOD ORDERABLES Final Re sult [facility] ([place]) [facility] Department [place] [address] * Colonoscopy (06/19/2024 10:29 AM CENTRIFUGAL DRIER OPERATOR) Anatomical Region Laterality Modality Other Narrative Procedure Note aKtie Main MD - 06/19/2024 10:[address] [facility] Patient Name: Alpesh Benz Procedure Date: 06/19/2024 10:29AM Date of : 1975 Admit Type: Outpatient Age: 48 Gender: Male Attending MD: Katie Main M.D. Room: [facility] ENDOSCOPY ROOM 1 Note Status: Finalized Patient Profile: This is a 48 year old male. No family history ofcolon cancer. Screening colonoscopy. Procedure: Colonoscopy Indications: Screening for colorectal malignant neoplasm, Thisis the patient's first colonoscopy Referring MD: Saeed Alicea M.D. Providers: Katie Main M.D. Impression: - The entire examined colon is normal. - Internal hemorrhoids. - No specimens collected. Recommendation: - Repeat colonoscopy in 10 years for screening purposes. Medicines: Monitored Anesthesia Care Complications: No immediate complications. Estimated Blood Loss: Estimated blood loss: none. Procedure: Pre-Anesthesia Assessment: - Prior to the procedure, a History and Physicalwas performed, and patient medications and allergieswere reviewed. The patient's tolerance of previous anesthesia was also reviewed. The risks andbenefits of the procedure and the sedation options and risks were discussed with the patient. All questions were answered, and informed consent was obtained. Prior Anticoagulants: The patient has taken noanticoagulant or antiplatelet agents. ASA Grade Assessment: Per anesthesia note and evaluation. After reviewing the risks and benefits, the patient was deemed in satisfactory condition to undergo the procedure. - Prior to the procedure, a History and Physicalwas performed, and patient medications and allergieswere reviewed. The patient's tolerance of previous anesthesia was also reviewed. The risks andbenefits of the procedure and the sedation options and risks were discussed with the patient. All questions were answered, and informed consent was obtained. Prior Anticoagulants: The patient has taken noanticoagulant or antiplatelet agents. ASA Grade Assessment: Per anesthesia note and evaluation. After reviewing the risks and benefits, the patient was deemed in satisfactory condition to undergo the procedure. The benefits, risks and alternatives of theprocedure and sedation were discussed and informed consentwas obtained. All questions were answered. Please referto the signed informed consent document in the medical record. The bowel preparation used was Miralax and bisacodyl tablets via split dose instruction. The scope was passed under direct vision. The Pediatric Colonoscope [id number]-[id number] was introducedthrough the anus and advanced to the the cecum, identifiedby appendiceal orifice and ileocecal valve. Thequality of the bowel preparation was good. Bowel prep was administered using a split dose. Findings: The perianal and digital rectal examinations were normal. The cecum appeared normal. The colon (entire examined portion) appeared normal. No polyps and no mass lesions noted. Internal hemorrhoids were found during retroflexion. The hemorrhoids were small. Electronically signed by Katie Main M.D. Katie Main M.D. 06/19/2024 1:09:00 PM Number of Addenda: 0 Note Initiated On: 06/19/2024 10:29 AM Procedure Code(s): --- Professional --- 17382, Colonoscopy, flexible; diagnostic, including collection of specimen(s) by brushing or washing, when performed (separateprocedure) Diagnosis Code(s): --- Professional --- Z12.11, Encounter for screening for malignant neoplasm of colon K64.8, Other hemorrhoids CPT copyright 2020 [employer]. All rights reserved. The codes documented in this report are preliminary and upon power and recovery shift engineer reviewmay be revised to meet current compliance requirements. Recognized by the [employer] for promoting quality in endoscopy us Katie Main MD ENDOSCOPY PROCEDURES Final Result from Last 3 Months or Most Recently Relevant to Health Maintenance Insurance [employer] OPEN ACCESS Advance Directives For more information, please contact: [phone] * Full Code (Latest Code Status on File) Date Activated Date Inactivated Comments 06/19/2024 10:33 AM 06/19/2024 5:58 PM * Full Code Date Activated Date Inactivated Comments 06/19/2024 10:32 AM 06/19/2024 10:33 AM * Full Code Date Activated Date Inactivated Comments 02/03/2022 8:27 PM 02/04/2022 8:42 PM Care Teams Cigarette Machines Mechanic Relationship Specialty Start Date End Date Saeed Alicea [place] [address] PCP - General 10/28/16
--- OUTSIDE RECORDS SUMMARY | 2024-10-08 19:26 | XMS_ITS | Referral Summary ---
Author Organization [facility] lto Address [address] [place] [address] Care Team Providers Care Manager Special Events Name Role Phone Saeed Alicea MD Primary Care Provider [phone] Encounters Date Type Department Care Team Description 08/16/2024 Telephone [facility] [address] [place] [address] Saeed Alicea MD 08/08/2024 11:30 AM BRASS CHASER Lab [facility] [address] [place] [address] Family history of hemochromatosis; Hyperlipidemia, familial, high LDL; Essential hypertension 08/08/2024 11:00 AM BRASS CHASER Office Visit [facility] [address] [place] [address] Pily Tipton NP Family history of hemochromatosis (Primary Dx); Essential hypertension; Hyperlipidemia, familial, high LDL; Class 3 severe obesity due to excess calories without serious comorbidity with body mass index (BMI) of 40.0 to 44.9 in adult (HCC) from Last 3 Months Allergies No known active allergies Medications aspirin 81 mg chewable tablet Take 1 tablet (81 mg total) by mouth daily 30 tablet 02/06/20 22 Active atorvastatin (LIPITOR) 40 mg tablet Take 1 tablet (40 mg total) by mouth daily 30 tablet 03/09/20 23 Active benzonatate (TESSALON) 100 mg [...] 08/08/2024 Assessment & Plan (08/08/2024 11:09 AM BRASS CHASER): Encouraged heart healthy diet and lifestyle. Advised 150 min/week of aerobic exercise. Family history of hemochromatosis 08/08/2024 Assessment & Plan (08/08/2024 11:10 AM BRASS CHASER): Will check iron profile, Ferritin, and Hemochromatosis [...] hypertension Assessment & Plan (08/08/2024 11:08 AM BRASS CHASER): Blood pressure slightly increased. Admits to not [...] LDL Assessment & Plan (08/08/2024 11:08 AM BRASS CHASER): Lipid panel ordered. Will continue atorvastatin. Will [...] greens, fat-free milk, cottage cheese, nuts like pglkybo-qmhurpk-etskcmo, protein bars with 10-15 g of protein and 20-30 g of carbohydrate. Choose whole grain breads and pastas, brown rice, sweet potatoes, read onions--these whole grains absorb more slowly thus blood sugar does not surge so high so quickly. Avoid drinking juice, eat a piece of fruit instead. Immunizations Immunization Administration Dates Next Due Influenza, Quadrivalent, Spl it, Preservative Free, Intramuscular 05/04/2021 Influenza, Unspecified 08/08/2024(Deferr ed: Patient Refused),08/08/2024(Deferred: Patient Refused),03/31/2024(Deferred: Patient Refused),03/31/2024(Deferred: Patient Refused),03/31/2023(Deferred: Patient Refused),03/09/2023(Deferred: Patient Refused),07/20/2022(Deferred: Patient Refused),03/31/2022(Deferred: Patient Refused),07/31/2020(Deferred: Patient Refused),03/31/2020(Deferred: Patient Refused),10/04/2019(Deferred: Patient Refused),07/31/2018(Deferred: Patient Refused),09/28/2017(Deferred: Patient Refused),08/01/2016(Deferred: Patient Refused) Social History Tobacco Use Types Packs/Day Years [...] on file Legal Sex Male 12:30 AM BRASS CHASER Gender Identity Not on file Sexual Orientation Not on file Last Filed Vital Signs Vital Sign Reading Time Taken Comments Blood Pressure 126/94 08/08/2024 10:56 AM BRASS CHASER pt reports not taking meds like he should Pulse 61 08/08/2024 10:56 AM BRASS CHASER Temperature 36.8 C (98.2 F) 06/19/2024 1:25 PM BRASS CHASER Respiratory Rate 18 08/08/2024 10:5 6 AM BRASS CHASER Oxygen Saturation 98% 08/08/2024 10: 56 AM BRASS CHASER Inhaled Oxygen Concentration - - Weight 115.8 kg (255 lb 6.4 oz) 08/08/2024 10:56 AM BRASS CHASER Height 167.6 cm (5' 5.98 ) 08/08/2024 1 0:56 AM BRASS CHASER Body Mass Index 41.24 08/08/2024 10:56 AM BRASS CHASER Plan of Treatment Not on file Procedures Procedure Name Priority Date/Time Associated Diagnosis Comments EGFR Routine 08/08/2024 11:53 AM BRASS CHASER Family history of hemochromatosis DIFFERENTIAL AUTO Routine 08/08/2024 11: 53 AM BRASS CHASER Family history of hemochromatosis Essential hypertension CBC WITH AUTO DIFFERENTIAL Routine 08/08/2024 11:53 AM BRASS CHASER Family history of hemochromatosis Essential hypertension COMPREHENSIVE METABOLIC PANEL Routine 08/08/2024 11:53 AM BRASS CHASER Family history of hemochromatosis LIPID PANEL Routine 08/08/2024 11:53 AM BRASS CHASER Hyperlipidemia, familial, high LDL IRON PROFILE W/ IBC Routine 08/08/2024 1 1:53 AM BRASS CHASER Family history of hemochromatosis FERRITIN Routine 08/08/2024 11:53 AM BRASS CHASER Family history of hemochromatosis HEMOCHROMATOSIS HFE GENE ANALYSIS Routine 08/08/2024 11:53 AM BRASS CHASER Family history of hemochromatosis COLONOSCOPY 06/19/2024 10:29 AM BRASS CHASER from Last 3 Months or Most Recently Relevant to Health Maintenance Results * eGFR (08/08/2024 11:53 AM BRASS CHASER) eGFR >90 >=60 mL/min/1. 73 m2 Comment: [...] was last reviewed 2021. Testing performed by: [facility], [address] [place] [address]., [id number] Blood 08/08/2024 11:5 3 AM BRASS CHASER 08/08/2024 10:41 PM BRASS CHASER Pily Tipton NP LAB BLOOD ORDERABLES Final Re sult [facility] ([place]) [facility] Department [place] [address] * Differential, auto (08/08/2024 11:53 AM BRASS CHASER) Neutrophil abs 4.4 1.5 - 6.5 K/cumm Comment:Testing performed by : [address], [address] Imm gran abs 0.0 0.0 - 0.1 K/cumm [facility] (JLUIS) Comment:Testing performed by : [facility], [address] [place] [address]., [address] Lymphocyte abs 1.8 0.8 - 3.3 K/cumm [facility] ([place]) Comment:Testing performed by : [address] [address] Monocyte abs 0.5 0.2 - 0.8 K/cumm [facility] ([place]) Comment:Testing performed by : [address] [address] Eosinophil abs 0.1 0.0 - 0.5 K/cumm [facility] ([place]) Comment:Testing performed by : [address] [address] Basophil abs 0.1 0.0 - 0.1 K/cumm [facility] ([place]) Comment:Testing performed by : [address], [address] Neutrophil pct 65.1 % [facility] (JLUIS) Comment: Interpretive Data Percent cell count reference ranges are not reported, since discordance with absolute values may lead to misinterpretation of CBC data. Current Interpretive Data was last revised on 2017. Testing performed by: [facility], [address] [place] [address]., [address] Imm gran pct 0.4 % [facility] ([place]) Comment: Interpretive Data Percent cell count reference ranges are not reported, since discordance with absolute values may lead to misinterpretation of CBC data. Current Interpretive Data was last revised on 2017. Testing performed by: [facility], [address] [place] [address]., [address] Lymphocyte pct 26.0 % [facility] (J[place]) Comment: Interpretive Data Percent cell count reference ranges are not reported, since discordance with absolute values may lead to misinterpretation of CBC data. Current Interpretive Data was last revised on 2017. Testing performed by: [address] [address] Monocyte pct 6.9 % [facility] (JLUIS) Comment: Interpretive Data Percent cell count reference ranges are not reported, since discordance with absolute values may lead to misinterpretation of CBC data. Current Interpretive Data was last revised on 2017. Testing performed by: [address] [address] Eosinophil pct 0.9 % [facility] ([place]) Comment: Interpretive Data Percent cell count reference ranges are not reported, since discordance with absolute values may lead to misinterpretation of CBC data. Current Interpretive Data was last revised on 2017. Testing performed by: [address] [address] Basophil pct 0.7 % [facility] ([place]) Comment: Interpretive Data Percent cell count reference ranges are not reported, since discordance with absolute values may lead to misinterpretation of CBC data. Current Interpretive Data was last revised on 2017. Testing performed by: [address] [address] Blood 08/08/2024 11:5 3 AM BRASS CHASER 08/08/2024 10:36 PM BRASS CHASER us Pily Tipton PRIMER WATERPROOFING MACHINE OPERATOR LAB BLOOD ORDERABLES Final Re sult [facility] CABALL[facility] ([place]HA) [facility] Department [place] [address] * Iron profile w/ IBC (08/08/2024 11:53 AM BRASS CHASER) Iron 112 50 - 150 mcg/dl Comment:Testing performed by : [facility], [address] [place] [address]., [address] TIBC 316 250 - 400 mcg/dL [facility] (JLUIS) Comment:Testing performed by : [address], [address] Transferrin saturation 35 20 - 50 % [facility] (JLUIS) Comment:Testing performed by : [address], [address] Blood 08/08/2024 11:5 3 AM BRASS CHASER 08/08/2024 10:36 PM BRASS CHASER Pily Tipton PRIMER WATERPROOFING MACHINE OPERATOR LAB BLOOD ORDERABLES Final Re sult [facility] ([place]) [facility] Department [place] [address] * (ABNORMAL) CBC with auto differential (08/08/2024 11:53 AM BRASS CHASER) WBC 6.8 3.8 - 9.9 K/cumm Comment:Testing performed by : [address] [address] Hgb 15.7 13.0 - 17.5 g/dL [facility] (JLUIS) Comment:Testing performed by : [address], [address] Hct 47.5 38.9 - 50.3 % [facility]ALL[facility] (JLUIS) Comment:Testing performed by : [address], [address] Plt 269 150 - 400 K/cumm [facility] (JLUIS) Comment:Testing performed by : [address], [address] MPV 10.8 9.1 - 12.3 fL [facility] ([place]) Comment:Testing performed by : [facility], [address] [place] [address], [address] RBC 4.70 4.30 - 5.80 M/cumm [facility] ([place]) Comment:Testing performed by : [facility], [address] [place] [address], [address] MCV 101.1(H) 81.3 - 96.4 fL [facility] ([place]) Comment:Testing performed by : [facility], [address] [place] [address], [address] MCH 33.4(H) 27.1 - 33.3 pg [facility] ([place]) Comment:Testing performed by : [address], [address] MCHC 33.1 32.3 - 35.7 g/dL [facility] ([place]) Comment:Testing performed by : [address], [address] RDW CV 13.7 11.1 - 14.9 % [facility] ([place]) Comment:Testing performed by : [address], [address] RDW SD 50.6(H) 35.7 - 48.1 fL [facility] ([place]) Comment:Testing performed by : [address], [address] NRBC abs 0.00 0.00 - 0.01 K/cumm [facility] ([place]) Comment:Testing performed by : [address], [address] Blood 08/08/2024 11:5 3 AM BRASS CHASER 08/08/2024 10:36 PM BRASS CHASER us Pily Tipton NP LAB BLOOD ORDERABLES Final Re sult [facility] ([place]) [facility] Department [place] [address] * Hemochromatosis HFE Gene Analysis (08/08/2024 11:53 AM BRASS CHASER) HFE Genotype Negative [facility] Comment:Testing performed by : [facility], [address] [place]., [address] HFE p.C282Y Negative [facility] BAR (JLUIS) Comment:Testing performed by : [facility], [address] [place]., [address] HFE p.H63D Negative J[facility]MYNE Freitas (JLUIS) Comment:Testing performed by : [facility], [address] [place]., [address] HFE Interpretation This genotype suggests low risk [...] the clinical implications of this result. [facility] CABALLERO (JLUIS) Comment:Testing performed by : [facility], [address] [place]., [address] HFE Specimen Whole Blood JENNYFER CABALLERO (JLUIS) Comment:Testing performed by : [facility], [address] [place]., [address] HFE Result Review Final report reviewed by: Tracie Banks, [employer] Consultant, on 08/16/2024 11:41:11 BRASS CHASER. [facility] (JLUIS) Comment: Interpretive Data Method: This assay detects the two variants in the HFE gene, p.C282Y (NM_000410.2: c.845G>A) and p.H63D (NM_000410.2: c.187C>G), that are commonly associated with HH. The variants are detected by a multiplex PCR based assay performed on the [employer] Fast Dx Real-Time PCR instrument. Limitations: Bone [...] determined by the Molecular Diagnostics Laboratory at [facility] in a manner consistent with CLIA requirements. This test has not been cleared or approved by the U.S. Food and Drug Administration. References: Everardo RODAS, Matt SALGUERO, Peter CC, et al. Bqvb-fqyoxmae-yywvcix disease in HFE hereditary hemochromatosis. N Engl J Med. 2008;358:221 3 0. Buzz BR, Shan PC, Kodereje KV, et al. Diagnosis and management of hemochromatosis: 2011 practice guideline by the [place] [employer] for the Study of Liver Diseases. Hepatology. 2011;54:328 4 3. Sánchez NUBIA, Miguel CQ, Na RT. HFE gene: structure, function, mutations, and associated iron abnormalities. Gene. 2015;574:179 9 2. Fabrice LUCIO, Shay HERCULES, Abbey SALVADOR, et al. Clinical and biochemical abnormalities in [...] morbidity. Hepatology. 2009;50:94 1 01. Lucius CORNELIUS, Dutch Robles. HFE gene and hereditary hemochromatosis: a HuGE review. Human Genome Epidemiology. Am J Epidemiol. 2001 Aug 1; 154(3):193-206. Fransisco Kevin, Maggie C, Krysta L, et al. Two novel nonsense mutations of HFE gene in five unrelated [place] patients with hemochromatosis. Gastroenterology. 2000;119:441 5 . Heather EP, Jessa BA, Evens EL, et al. Screening for hereditary hemochromatosis: a systematic review for the U.S. Preventive Services Task Force. Tawanna [employer] Consultant Med. 2006;145:209 2 3. This test was performed at: [facility], [facility], [facility]#[id number], Tawanna Boateng, Ph.D., [place], [address], [place] Current interpretive data was last revised 2021. Testing performed by: [facility], [address] [place] [address], [place]., [address] Blood 08/08/2024 11:5 3 AM BRASS CHASER 08/09/2024 10:47 AM BRASS CHASER Pily Tipton NP LAB GENETIC TESTING Final Res ult Performing Organization Address City/[facility]/ZIP Co de Phone Number [facility] ([place]) [facility] [place] [address] BJ * Ferritin (08/08/2024 11:53 AM BRASS CHASER) Ferritin 258 30 - 400 ng/mL Comment:Testing performed by : [facility], [address] [place] [address]., [address] Blood 08/08/2024 11:5 3 AM BRASS CHASER 08/08/2024 10:36 PM BRASS CHASER Pily Tipton NP LAB BLOOD ORDERABLES Final Re sult J[facility] CABALLERO ([place]) 1 [facility] [address] [place], [place] [address] [phone] * (ABNORMAL) Lipid panel (08/08/2024 11:53 AM BRASS CHASER) Cholesterol 271(H) 30 - 199 mg/dL Comment: [...] last revised on 2018. Testing performed by: [address] [address] Triglycerides 226(H) <=149 mg/dL J[facility] CABALLERO (JLUIS) Comment: Interpretive Data [...] last revised on 2018. Testing performed by: [facility], [address] [place] [address]., [address] HDL 43 >=40 mg/dL [facility] CABALLERO (JLUIS) Comment: Interpretive Data [...] last revised on 2018. Testing performed by: [facility], [address] [place] [address]., [address] LDL, calculated 185(H) <=129 mg/dL [facility] CABALL[facility] (JLUIS) Comment: Interpretive Data Ages < or = 19 years Acceptable: <110 mg/dL Borderline high: 110-129 mg/dL High: >or= 130 mg/dL Ages > or = 20 years Optimal: <100 mg/dL Near optimal: 100-129 mg/dL Borderline high: 130-159 mg/dL High: >160 mg/dL Calculated using the Juan LDL-C estimating equation. This equation was implemented [...] last revised on 2024. Testing performed by: [address] [address] Non-HDL Cholesterol 228 mg/dL [facility] CABALLERO (JLUIS) [...] last revised on 2018. Testing performed by: [facility], [address] [place] [address]., [address] Chol/HDL ratio 6 [facility]ENNY[facility] CABALL[facility] (JLUIS) Comment:Testing performed by : [facility], [address] [place] [address]., [address] Blood 08/08/2024 11:5 3 AM BRASS CHASER 08/08/2024 10:36 PM BRASS CHASER Pily Tipton PRIMER WATERPROOFING MACHINE OPERATOR LAB BLOOD ORDERABLES Final Re sult J[facility]MYNE [facility] ([place]) [address] [facility] Department [place] [address] * (ABNORMAL) Comprehensive metabolic panel (08/08/2024 11:53 AM BRASS CHASER) Sodium 136 135 - 145 mmol/L Comment:Testing performed by : [facility], [address] [place] [address]., [address] Potassium, pl 4.8 3.3 - 4.9 mmol/L [facility] ([place]) Comment:Testing performed by : [facility], [address] [place] [address], [address] Chloride 98 97 - 110 mmol/L [facility] ([facility] Comment:Testing performed by : [facility], [address] [place] [address], [address] CO2 19(L) 22 - 32 mmol/L [facility] ([place]) Comment:Testing performed by : [facility], [address] [place] [address], [address] Anion gap 19(H) 2 - 15 mmol/L [facility] (J[place]) Comment:Testing performed by : [address], [address] BUN 11 6 - 25 mg/dL [facility] ([place]) Comment:Testing performed by : [address], [address] Creatinine 0.97 0.80 - 1.30 mg/dL [facility] (J[place]) Comment:Testing performed by : [address], [address] Glucose 96 70 - 199 mg/dL [facility] ([facility] Comment: Interpretive Data Fasting glucose [...] was last revised 2022. Testing performed by: [facility], [address] [place] [address], [address] Calcium 9.7 8.5 - 10.3 mg/dL [facility] ([place]) Comment:Testing performed by : [facility], [address] [place] [address], [address] Bilirubin, total 0.6 0.1 - 1.2 mg/dL [facility] ([place]) Comment:Testing performed by : [address], [address] Protein, pl 7.5 6.5 - 8.5 g/dL [facility] (J[place]) Comment:Testing performed by : [address], [address] Albumin 4.7 3.5 - 5.0 g/dL [facility] (JLUIS) Comment:Testing performed by : [facility], [address] [place] [address], [address] Alk phos 60 40 - 130 Units/L [facility] ([place]) Comment:Testing performed by : [address], [address] ALT 62(H) 7 - 55 Units/L [facility] ([place]) Comment:Testing performed by : [address], [address] AST 53(H) 10 - 50 Units/L [facility] ([place]) Comment:Testing performed by : [address], [address] Blood 08/08/2024 11:5 3 AM BRASS CHASER 08/08/2024 10:36 PM BRASS CHASER us Pily Tipton NP LAB BLOOD ORDERABLES Final Re sult [facility] ([place]) [facility] Department [place] [address] * Colonoscopy (06/19/2024 10:29 AM BRASS CHASER) Anatomical Region Laterality Modality Other Narrative Procedure Note Katie Main MD - 06/19/2024 10:29 AM CST [facility] Patient Name: Alpesh Benz Procedure Date: 06/19/2024 10:29AM Date of : 1975 Admit Type: Outpatient Age: 48 Gender: Male Attending MD: Katie Main M.D. Room: [facility] ENDOSCOPY ROOM 1 Note Status: Finalized Patient [...] under direct vision. The Pediatric Colonoscope PCF-[id number] was introducedthrough the anus and advanced to [...] 10:29 AM Procedure Code(s): --- Professional --- 84495, Colonoscopy, flexible; diagnostic, including collection of specimen(s) by brushing or washing, when performed (separateprocedure) Diagnosis Code(s): --- Professional --- Z12.11, Encounter for screening for malignant neoplasm of colon K64.8, Other hemorrhoids CPT copyright 2020 [employer]. All rights reserved. The codes documented in this report are preliminary and upon info analyst reviewmay be revised to meet current compliance requirements. Recognized by the [place] [employer] for promoting quality in endoscopy Katie Main MD ENDOSCOPY PROCEDURES Final Result from Last 3 Months or Most Recently Relevant to Health Maintenance Insurance [employer] OPEN ACCESS Advance Directives For more information, please contact: [phone] * Full Code (Latest Code Status on File) Date Activated Date Inactivated Comments 06/19/2024 10:33 AM 06/19/2024 5:58 PM * Full Code Date Activated Date Inactivated Comments 06/19/2024 10:32 AM 06/19/2024 10:33 AM * Full Code Date Activated Date Inactivated Comments 02/03/2022 8:27 PM 02/04/2022 8:42 PM Care Teams Manager Special Events Relationship Specialty Start Date End Date Saeed Alicea MD [address] [place] [address] PCP - General 10/28/16
[2024-10-08 19:31] VITALS: BP 160/90; PULSE 84; RESP 18; TEMP 36.3; O2SAT 99
--- NOTE | 2024-10-08 19:48 | ED_ITS ---
HPI - Fever General Chief Complaint: Fever Stated Complaint: Fever Time Seen by Provider: 10/08/24 19:40 Source: patient, RN notes reviewed and old records reviewed Mode of arrival: ambulatory Limitations: no limitations History of Present Illness HPI Narrative: 48 year old male presents to [facility] care with complaints of having some ear pain, fevers, and some sinus congestion which developed this afternoon. MD elicited complaint: other (ear pain, fever, and some sinus congestion) Related Data Home Medications ?Medication ?Instructions ?Recorded ?Confirmed ?Last Taken ?Type amlodipine 2.5 mg tablet 5 mg PO DAILY 10/14/22 06/19/23 Unknown History aspirin 81 mg chewable tablet 81 mg PO DAILY 10/14/22 06/19/23 Unknown History atorvastatin 40 mg tablet 40 mg PO DAILY 10/14/22 06/19/23 Unknown History Allergies Allergy/AdvReac Type Severity Reaction Status Date / Time No Known Allergies Allergy Verified 10/14/22 12:12 Review of Systems Review of Systems: CONSTITUTIONAL: Denies malaise, chills, sweats, or fever. EYES: Denies visual changes, redness, or discharge. ENT: Reports rhinorrhea, congestion, sinus pain, otalgia and sore throat. CARDIOVASCULAR: Denies chest pain, palpitations, or edema. RESPIRATORY: Reports cough.? Denies dyspnea. GASTROINTESTINAL: Denies abdominal pain, nausea, vomiting, diarrhea SKIN: Denies rash or itching. MUSCULOSKELETAL: Denies myalgia. NEUROLOGIC: Denies headache. All systems reviewed & are unremarkable except as noted in HPI and below PMFSH Past Medical History Medical History GERD (gastroesophageal reflux disease) Elevated cholesterol Hypertension Inguinal hernia Social History Social History (Updated 10/08/24 @ 20:12 by Hallie Day NP) Smoking status: Never smoker Comments At time of signature, agree with nursing past medical, surgical, social and family history. There is no relevant family history pertinent to the presenting complaint Exam Narrative: GENERAL: Well-appearing, well-nourished, and in no acute distress. HEAD: Normocephalic EYES: PERRLA, conjunctivae clear ENT: Nares clear, turbinates edematous and erythematous, clear discharge. Mucous membranes moist. TM pearly alvarez with dull light reflex bilaterally; no tragal tenderness. Oropharynx erythematous without lesions. Tonsils not enlarged and without exudate, no drooling, no hoarseness, no trismus, uvula midline. NECK: Supple. No lymphadenopathy CHEST: Clear to auscultation, breath sounds equal. No wheezing, rhonchi, rales, or stridor. No respiratory distress, speaks in full sentences. HEART: Regular rate and rhythm. No murmur heard. SKIN: Warm, dry, no rash. NEURO: Alert and oriented x3. PSYCH: Normal mood and affect Course Course Emergency Course: Patient is aware of diagnosis, understands and agrees to treatment plan.? Anticipatory guidance given.? Patient agrees to follow-up as directed and is aware of reasons to seek care at the emergency department. Portions of this record may have been created with voice recognition software Level of Care: Express Care Visit Vital Signs Vital signs: Vital Signs Temperature 36.3 C L 10/08/24 19:31 Pulse Rate 84 10/08/24 19:31 Respiratory Rate 18 10/08/24 19:31 Blood Pressure 160/90 H 10/08/24 19:31 Pulse Oximetry 99 10/08/24 19:31 Oxygen Delivery Room Air 10/08/24 19:31 Temperature 36.3 C L 10/08/24 19:31 Pulse Rate 84 10/08/24 19:31 Respiratory Rate 18 10/08/24 19:31 Blood Pressure 160/90 H 10/08/24 19:31 Pulse Oximetry 99 10/08/24 19:31 Oxygen Delivery Room Air 10/08/24 19:31 Reviewed MDM - Fever Differential Diagnosis Differential diagnosis: Likely viral infection, influenza and other (URI, sinus congestion, ) Medical Records Attestation: I reviewed the patient's medical records. Lab Data Attestation: I reviewed the patient's lab results. Lab results narrative: Influenza A negative, Influenza B negative, COVID antigen negative Critical Care Time Critical Care Time Critical Care Time: No Discharge Plan Discharge Clinical Impression: Upper respiratory infection Qualifiers: URI type: unspecified URI Qualified Code(s): J06.9 - Acute upper respiratory infection, unspecified Patient Disposition: Home, Self-Care Condition: Stable Instructions: Antibiotic Form, Upper Respiratory Infection (ED) Additional Instructions: Increase fluids especially juices and water [id number] cough and cold medicine of your choice for your symptoms Zyrtec Claritin or Margarita daily may include Coricidin brand decongestant Tylenol or ibuprofen for any fever pain Delsym or Robitussin cough syrup heat to the face 20-30 minutes 4-6 times a day for pain Salt water gargles, throat lozenges or throat sprays as desired If your symptoms persist, change or worsen significantly before you can contact your personal physician then please, without delay, go to the emergency department for further evaluation. Follow-up with PCP in 7-10 days or sooner if needed Follow up with PCP soon in regards to your blood pressure which is elevated above threshold for referral. Blood pressure above 120/80 may indicate pre- hypertension. 160/90 May need to retest tomorrow may be too early to be accurate since symptoms started this afternoon Patient Language: Persian Prescriptions: No Action atorvastatin 40 mg tablet 40 mg PO DAILY amlodipine 2.5 mg tablet 5 mg PO DAILY aspirin 81 mg tablet,chewable 81 mg PO DAILY Follow-up/Referrals: Harms,Saeed Jiménez M.D. [Primary Care Provider] - Time of Disposition: 19:56 Quality [place] Coma Scale Eyes: Open Verbal: Oriented and Alert Motor: Follows Commands Jaswant Coma Total Score: 15
[2024-10-08 19:50] LABS: EDCOVIDSCREEN Negative (Negative); EDINFLUASCREEN Negative (Negative); EDINFLUBSCREEN Negative (Negative)
== END 2024-10-08 20:00 | disposition home or self-care (01) ==
PROVIDERS: Emergency Provider Registered Nurse; PCP Family Medicine
DX: J06.9 Acute upper respiratory infection, unspecified (principal); I10 Essential (primary) hypertension; Z20.822 Contact with and (suspected) exposure to COVID-19
CPT/HCPCS: 87426; 87804; 99212; G0463